=== PATIENT | male | born 1965 | race Caucasian/White ===

== ENCOUNTER 2022-11-26 08:06 | Day surgery (SDC) | payer OTHER, SELFPAY ==
[2022-11-23 09:10] VITALS: BMI 33.3
[2022-11-26] VITALS (12 sets, daily range): BP systolic 97–130; BP diastolic 48–90; PULSE 22–92; RESP 12–21; TEMP 36–37.1; O2SAT 95–100; BMI 33.3
--- NOTE | 2022-11-26 | PATH_ITS ---
[facility] Accession Number: [id number] No. of containers..01 Tissue . 01 Material submitted: . prostate - PROSTATE CHIPS . 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 Background benign glandular and stromal hyperplasia. MRV 12/06/2022 1721 Local . 01 Electronically signed: . Nessa Neil MD, Pathologist NPI- [id number] . 01 Gross description: . The specimen is received in formalin labeled with the patient's name, , and prostate chips and consists of multiple cuenca rubbery tissue fragments weighing 10 grams and aggregating to 7.3 x 6.4 x 1.5 cm. No discrete lesions are identified. The specimen is submitted entirely in cassettes A1-A10. ([id number]) /[facility] 11/27/2022 1722 Local . 01 Microscopic: . An immunohistochemistry staining cocktail of high molecular weight cytokeratin (HMWK) + p63 and AMACR are performed to further identify the cells of interest. The controls stain appropriately. . RESULTS: Block A6 HMWCK+p63: Absent in region of interest. AMACR: Positive in region of interest. . The AMACR positivity and absence of staining with HMWK + p63 at the region of interest supports an interpretation of prostatic adenocarcinoma in this tissue. . Deparaffinized sections of formalin-fixed tissue (along with appropriate positive and negative controls) are incubated with the following antibody(s). Using the automated [place] stainer, tissue is incubated with the designated antibody which is then localized by a non-biotin, dual polymer detection system. The controls are reviewed for appropriate reactivity and found to be adequate. . Some of the immunohistochemistry stains reported below were developed and their performance characteristics determined by [employer] They have not been cleared or approved by the U.S. Food and Drug Administration, although such approval is not required for analyte-specific reagents of this type. . 01 Pathologist provided ICD-10: C61, N40.1 . 01 CPT . 658897, Y40113, N53018 Specimen Comment: A courtesy copy of this report has been sent to [phone] Performed at: 01 [facility] [address] [place] [address] [address] [facility], [place], [place] [id number] MD Gabriel Reed MD Phone: [phone]
--- NOTE | 2022-11-26 08:16 | PM.PREOP ---
Pre-operative Note COVID-19 Criteria for continued procedure: Expected advancement of disease process, Possibility delay results in more complex future surgery or treatment, Deterioration of the patient's condition or overall health, Delay expected to result in less-positive ultimate med/surg outcome and Non-surgical alternatives not available or appropriate per current SOC Interval Note History & Physical reviewed/Exam performed by Physician: Yes Changes to H&P: No
[2022-11-26] MEDS: ACETAMINOPHEN 325 MG TABLET 975 MG PO (08:39)
[2022-11-26 08:42] LABS: COVID19 -Nasal RAPID Negative (Negative)
[2022-11-26] MEDS: LACTATED RINGERS 1,000 ML 42 ML IV (08:45)
[2022-11-26] MEDS: CEFAZOLIN 2 GM/100 ML PREMIX 100 ML IV (09:05)
[2022-11-26] MEDS: TRANEXAMIC ACID 1,000 MG in SODIUM CHLORIDE 0.9% 100 ML 200 MG IV (09:10)
--- NOTE | 2022-11-26 09:12 | SUR.OPER ---
Lithotomy on padded OR bed, head on pillow, arms secured on padded arm boards at <90 degrees abduction. Legs secured in padded yellow fins stirrups.
--- NOTE | 2022-11-26 10:44 | P.OP_ITS ---
Operative Date/Time/Diagnoses Date of procedure: 11/26/22 Time of procedure: 01:30 Pre-op diagnosis: Bladder outlet obstruction Post-op diagnosis: same Procedure & Clinicians Procedure: 1. Transurethral resection of prostate Same procedure as scheduled: Yes Indications: 1. Bladder outlet obstruction. 2. Dissatisfaction with medical therapy. Surgeon: Melissa Rutledge Click Yes if Unassisted: Yes Anesthesia Type: General Operative Notes Findings: 1. Urethra-normal caliber without annular stricture or lesion. 2. External sphincter-coapted with normal overlying urothelium. 3. Prostate-4+ cm length with moderate lateral lobe hyperplasia and elevated median bar. 4. Bladder-1 to 2+ trabeculation. Normal ureteral orifices bilaterally. Clear efflux urine. No stone, tumor, or diverticulum seen. Closure Type: not applicable Specimen(s): other (Prostate chips) Applied: catheter ([address] [place] [address] silicone catheter connected to normal saline continuous bladder irrigation.) Estimated Blood Loss (mL): 5 Blood products transfused: none Procedure in detail: The patient was positioned in supine was administered general anesthesia. He was then repositioned in semilithotomy and the lower abdomen, genitalia, and groin were prepped and draped in sterile fashion. The resectoscope was then passed and lower urinary tract under direct visualization with the findings as described above. The working element was then fitted with the resecting loop and incisions were then made at the 11, and 1 o'clock positions from bladder neck to the level of the verumontanum. The intervening anterior tissue was then resected to the level of the capsule. Next, the left, and right lateral lobes were resected starting anteriorly in progressing and alternating posteriorly. Finally the median bar was resected, again from bladder neck to verumontanum. Lateral apical tissue was left on resected intentionally on both sides. Hemostasis was attained with electrocautery. All chips were removed from the bladder and prostatic fossa using the [place] evacuator and use of the resecting loop. The bladder was then left partially filled and the resectoscope was removed. A 22 [place], three-way silicone catheter was then positioned in the bladder over a catheter guide. The balloon was inflated to 30 cc. The catheter was hand irrigated clear before attaching it to normal saline 3 way continuous bladder irrigation. The patient was then positioned in supine, was awakened, transferred to [facility], and transported recovery in stable condition. Complications: none Post-operative Condition: stable Disposition: Acute Care
[2022-11-26 10:54] LABS: Appearance Urine UA SL CLOUDY; Bilirubin Urine UA NEGATIVE (NEGATIVE); Color Urine UA ORANGE; Glucose Urine UA NEGATIVE (Negative); Ketones Urine UA NEGATIVE (NEGATIVE); Leukocyte Esterase Urine UA NEGATIVE (NEGATIVE); Nitrite Urine UA NEGATIVE (Negative); Occult Blood Urine UA 3+ (Negative); Protein Urine UA NEGATIVE (Negative); Specific Gravity Urine UA 1.015 (1.000-1.035); Urobilinogen Urine UA 0.2 E.U./dL (0.2); pH Urine UA 5.5 (4.5-8.0)
[2022-11-26 10:59] LABS: RBC Urine 10-30/HPF (0-5/HPF); WBC Urine None Seen (0-5/HPF)
[2022-11-26 11:00] LABS: Bacteria Urine None Seen; Culture Indicated Urine Cult Not Indicated; Squamous Epithelial Cell Urine 0-1 /HPF (0-5/HPF)
[2022-11-26] MEDS: LACTATED RINGERS 1,000 ML 125 ML IV ×2 (11:41→19:54)
[2022-11-26] MEDS: OXYCODONE/ACETAMINOPHEN 5/325 TABLET 1 TAB PO (19:55)
[2022-11-26] MEDS: METOPROLOL IR 50 MG TABLET PO (20:06)
[2022-11-26] MEDS: HYDROMORPHONE 0.5 MG INJ IV (22:35)
[2022-11-27] MEDS: HYDROMORPHONE 0.5 MG INJ IV (02:28)
[2022-11-27 03:12] VITALS: BP 106/61; PULSE 69; RESP 17; TEMP 36.3; O2SAT 93
[2022-11-27] MEDS: LACTATED RINGERS 1,000 ML 125 ML IV (03:45)
[2022-11-27 08:28] VITALS: BP 127/56; PULSE 68; RESP 16; TEMP 36.2; O2SAT 96
--- NOTE | 2022-11-27 08:46 | CM.DANOTE ---
Initial DCP Assessment Note Pt is a 56 yo male, resident of [place], now POD#1 from Transurethral resection of prostate PCP: Earnest Cerda Payer: [employer] DUTTA Reviewed chart, pt has planned for return home w/spouse to assist as needed No barriers identified at this time to patient's safe discharge home w/family to assist; close outpatient f/u recommended. WILTON Coleman Discharge Planning/Care Management CM Discharge Assessment Start: 11/27/22 08:41 Freq: Status: Active Protocol: Document 11/27/22 08:41 MUKUL (Rec: 11/27/22 08:46 [id number]) Discharge Planning Assessment Assigned Executive Coordinator WILTON Krueger DPOA/Assigned Designee Name Maren Dickinson, spouse Contact Information [phone] Advance Directives? No History Provided By Patient,Medical Record Prior Living Arrangements House Household Members spouse Type of transporation used prior to Drives own vehicle admit Independent with ADL's Yes Is patient alert and oriented? Yes Barriers to Discharge No Comment Home w/spouse expected upon medical discharge Discharge Plan Home Transportation Arrangement Spouse Referrals Initiated None needed
[2022-11-27] MEDS: TAMSULOSIN 0.4 MG CAPSULE 0.8 MG PO (09:30)
[2022-11-27] MEDS: METOPROLOL IR 50 MG TABLET PO (09:30)
--- NOTE | 2022-11-28 10:42 | PM.DS.1 ---
History of Present Illness History of Present Illness Date Patient Seen: 11/27/22 Time Patient Seen: 07:10 Chief complaint: Transurethral Resection Prostate Narrative: The patient is postoperative day 1 status post uncomplicated Transurethral resection of prostate for severe bladder outlet obstructive symptoms and dissatisfaction with medical therapy. He reports an uneventful night, is tolerating general diet, and denies pain. Discharge Providers Provider Date of admission: 11/26/2022 Discharge Date: 11/27/22 Primary care physician: Earnest Cerda MD Discharge provider: Melissa Rutledge MD Exam Vital Signs (past 8 hours): Oxygen Delivery Method Room Air Oxygen Flow Rate 0 Narrative Exam Narrative: The patient is sitting upright in bed and chatting with his . He is in no acute distress. Abdomen protuberant soft. Nontender. Genitalia-indwelling [place] catheter with clear outflow at minimal irrigant inflow rate. [facility] Medical History BPH w urinary obs/LUTS Elevated PSA History of high blood pressure Incomplete bladder emptying Social History marital status: number of children: 3 household members: spouse Smoking Status: Never smoker alcohol intake: current caffeine: Yes Type(s) of exercise: none Discharge Assessment & Plan Assessment and Plan Assessment: 1. Stable postoperative day 1 status post Transurethral resection of prostate. 2. Indwelling [place] catheter. 3. Pathology pending. Plan of Treatment: 1. Discharge home today with indwelling [place] catheter, large back, and leg bag. 2. Outpatient supervised voiding trial will be scheduled for 11/29/2022 in the Urology Clinic. 3. Follow-up and discuss final surgical pathology report when final available. Discharge Plan Discharge Plan Patient Disposition: Home Provider Discharge Comment: Contact Urology Clinic after discharge to schedule your follow-up appointment. Discharge orders & Medications Discharge Orders: Discharge (Order); Ordered 11/27/22 Ordered By: Melissa Rutledge Prescriptions: New oxycodone 5 mg tablet 5 mg PO Q4H PRN (Reason: pain) Qty: 10 0RF cephalexin 250 mg capsule 250 mg PO TID Qty: 10 0RF Continued omeprazole 20 mg capsule 20 mg PO DAILY tamsulosin 0.4 mg capsule 0.8 mg PO DAILY metoprolol tartrate 50 mg tablet 50 mg PO BID testosterone cypionate 200 mg/mL oil 150 mg IM Q2W Follow up/Referrals: Earnest Cerda MD [Primary Care Provider] - Diet/Activity/Treatments Diet: Diet as Tolerated Activity: Do not lift objects heavier than 15 lb times at least 4 weeks. Catheter: 2-way [place] Catheter comment: Large bag in-home and at night. Leg bag when out of home. Skin/Wound/Dressing Care Report to your healthcare provider any signs of infection, such as:: chills, fever, night sweats, increased pain and unusual drainage Visit Report/Discharge Packet Instructions: How to Care for Your [place] Catheter -- Male, DI for Transurethral Resection of the Prostate Stand Alone Forms: Surgery Discharge Discharge Data Primary Care Provider: Earnest Cerda Attending Provider: Melissa Rutledge VTE Deep Vein Thrombosis/Pulmonary Embolism Present on Admission: No
== END 2022-11-27 15:08 | disposition home or self-care (01) ==
LOC: OR 08:07 → AC 08:07
PROVIDERS: PCP Family Medicine; Referring Provider Specialist; Visit Provider Specialist
PROC: 0VT08ZZ Resection of Prostate, Via Natural or Artificial Opening Endoscopic (ICD-10-PCS; CPT 52601; principal; 2022-11-26 09:15)
DX: C61 Malignant neoplasm of prostate (principal); N40.1 Benign prostatic hyperplasia with lower urinary tract symptoms; N13.8 Other obstructive and reflux uropathy; Z20.822 Contact with and (suspected) exposure to COVID-19
CPT/HCPCS: 52601; 81001; 87635; C9803; J0690; J1100; J1170; J2405; J2704; J3010

== ENCOUNTER → 2022-12-06 14:59 | Outpatient (CLI) | payer OTHER, SELFPAY ==
[2022-11-29 14:41] VITALS: BMI 33.3
== END ==
PROVIDERS: PCP Family Medicine; Visit Provider Specialist
DX: N40.1 Benign prostatic hyperplasia with lower urinary tract symptoms (principal); R33.9 Retention of urine, unspecified; N13.8 Other obstructive and reflux uropathy; R97.20 Elevated prostate specific antigen [PSA]
CPT/HCPCS: 51798; 87086

== ENCOUNTER → 2023-01-03 15:44 | Outpatient (CLI) | payer OTHER, SELFPAY ==
[2022-11-29 14:41] VITALS: BMI 33.3
== END ==
PROVIDERS: PCP Family Medicine; Visit Provider Specialist
DX: C61 Malignant neoplasm of prostate (principal); N13.8 Other obstructive and reflux uropathy; R33.9 Retention of urine, unspecified
CPT/HCPCS: 51798; 81002; 87086

== ENCOUNTER → 2023-05-10 10:10 | Outpatient (CLI) | payer OTHER, SELFPAY ==
[2022-11-29 14:41] VITALS: BMI 33.3
[2023-05-10 17:10] LABS: Appearance Urine UA CLEAR; Bilirubin Urine UA NEGATIVE (NEGATIVE); Color Urine UA YELLOW; Glucose Urine UA NEGATIVE (Negative); Ketones Urine UA NEGATIVE (NEGATIVE); Leukocyte Esterase Urine UA NEGATIVE (NEGATIVE); Nitrite Urine UA NEGATIVE (Negative); Occult Blood Urine UA 1+ (Negative); Protein Urine UA NEGATIVE (Negative); Specific Gravity Urine UA 1.015 (1.000-1.035)
[2023-05-10 17:20] LABS: Bacteria Urine None Seen; RBC Urine 1-5/HPF (0-5/HPF); Squamous Epithelial Cell Urine 1-5 /HPF (0-5/HPF); WBC Urine 1-5/HPF (0-5/HPF)
[2023-05-10 17:21] LABS: Culture Indicated Urine Cult Not Indicated
== END ==
PROVIDERS: PCP Family Medicine; Visit Provider Specialist
DX: R30.0 Dysuria (principal)
CPT/HCPCS: 81001

== ENCOUNTER → 2024-06-26 16:43 | Outpatient (CLI) | payer OTHER, SELFPAY ==
[2022-11-29 14:41] VITALS: BMI 33.3
--- NOTE | 2024-06-26 16:44 | DI.MRI.S_ITS ---
PROCEDURE: MR PELVIC PROSTATE PROTOCOL INDICATIONS: elevated PSA Per provided history from technologist, TURP with prostate adenocarcinoma found PSA not available for review TECHNIQUE: Coronal HASTE, axial T1 FSE with fat saturation, 3-plane nonbreath-hold T2 FSE. After the administration of contrast, dynamic axial, delayed axial and coronal VIBE or 2-D FLASH with fat saturation through the pelvis. Diffusion weighted imaging and ADC was performed. COMPARISON: None. FINDINGS: Image quality: Diffusion weighted and dynamic contrast enhanced images are diagnostic. Prostate: Gland size is 3.3 x 2.9 x 3.4 cm; ellipsoid gland volume is 17 mL. Post TURP changes. Transitional zone heterogenous nodules are present, either well encapsulated or mostly encapsulated, compatible with PI-RADS 1 or 2 likely BPH nodules. Suspected medial hypertrophy at the bladder neck is present. Mildly T2 hypointense heterogenous striated appearance of the peripheral zone is commonly seen with current or prior prostatitis, PI-RADS 2. Along the right anterior transitional zone adjacent to the TURP changes in the mid gland, slightly extending to the left side, there is a 1 x 1.1 x 1 cm region (5/12, 6/). Low T2 signal. T2 score 3. DWI score three. DCE positive. PI-RADS 3. The seminal vesicles appear clear. Genitourinary system: Status post TURP. Bladder appears unremarkable Bowel and peritoneum: Unremarkable lower abdomen bowel loops. No pathologic ascites Nodes and vessels: No pathologic lymph nodes by size criteria. No aneurysmal vessel identified. Soft tissues: Pelvic wall appears unremarkable. Bones: No suspicious osseous enhancement. IMPRESSION: PI-RADS 3 lesion in the mid gland right anterior transitional zone, slightly extending toward into the left gland.. Status post TURP changes. No definite extracapsular disease or seminal vesicle involvement No pathologic lymph nodes by size criteria within the field of view. If there is concern for high-grade disease on pathology, consider prostate PET-CT to further evaluate. Dictated by: Zaid Gil M.D. on 06/29/2024 at 10:14 Approved by: Zaid Gil M.D. on 06/29/2024 at 10:23
== END ==
PROVIDERS: PCP Family Medicine; Referring Provider Urology; Visit Provider Urology
DX: R97.20 Elevated prostate specific antigen [PSA] (principal); Z85.46 Personal history of malignant neoplasm of prostate; N42.9 Disorder of prostate, unspecified
CPT/HCPCS: 72197; A9579